=== PATIENT | female | born 1985 | race Caucasian/White ===

== ENCOUNTER 2022-11-21 16:23 | Emergency (ER) | payer MEDICAID ==
[~2022-11-21] VITALS: Ht 152.4 cm; Wt 101.2 kg
[2022-11-21] MEDS ORDERED: ACETAMINOPHEN ES 500 MG TABLET PO ONE (17:00)
[2022-11-21] MEDS ORDERED: KETOROLAC TROMETHAMINE 15 MG INJ IVP ONE (17:00)
[2022-11-21] MEDS ORDERED: IV NORMAL SALINE 1000 ML BAG IV ONE (17:00)
[2022-11-21 17:02] LABS: *BILIRUBIN,URIN NEGATIVE (NEGATIVE); *BLOOD, URINE NEGATIVE (NEGATIVE); *CLARITY,URINE CLEAR (CLEAR); *COLOR,URINE YELLOW (YELLOW); *KETONES,URINE NEGATIVE (NEGATIVE); *UROBILINOGEN,URINE 0.2 E.U./dl (NORMAL); LEUKOCYTE ESTERASE ,URINE TRACE (NEGATIVE); NITRITE, URINE NEGATIVE (NEGATIVE); UGLUCOSE NEGATIVE (NEGATIVE)
[2022-11-21 17:09] LABS: RBC,URINE 0-3 /HPF (0-3); WBC,URINE 0-3 /HPF (0-3)
[2022-11-21 17:13] LABS: MEAN CORPUSCULAR HEMOGLOBIN 27.7 uug (24.7-32.8); MEAN CORPUSCULAR VOLUME 83.4 fL (75.5-95.3); PLATELET COUNT (AUTO) 321 K/uL (179-408)
[2022-11-21 17:17] LABS: *URINE HCG, QUAL NEGATIVE (NEGATIVE)
[2022-11-21] MEDS ORDERED: KETOROLAC TROMETHAMINE 15 MG INJ ONE (17:21)
[2022-11-21 17:23] LABS: CREATININE 0.8 mg/dL (0.6-1.3)
[2022-11-21 17:29] LABS: BILIRUBIN,DIRECT 0.1 mg/dL (0.0-0.2); BILIRUBIN,TOTAL 0.3 mg/dL (0.2-1.0); TOTAL PROTEIN, SERUM 7.5 g/dL (6.4-8.2)
--- NOTE | 2022-11-21 17:45 | NUR ---
PT IS IN ROOM #1B. DR FINK EVALUATED THE PT.
[2022-11-21] MEDS ORDERED: LIDO30AD10 TP (18:35)
[2022-11-21] MEDS ORDERED: CYCL5TAB PO (18:35)
[2022-11-21] MEDS ORDERED: IBUP-1955 PO (18:35)
--- NOTE | 2022-11-21 19:05 | NUR ---
PT WAS D/C'd TO HOME. D/C INSTRUCTIONS GIVEN TO THE PT BY DR LANDEROS.
[2022-11-21 19:07] VITALS: BP 129/75; TEMP 98.2; O2SAT 98
== END 2022-11-21 19:08 | disposition home or self-care (01) ==
LOC: ER 16:23
DX: M54.50 Low back pain, unspecified (principal)
CPT/HCPCS: 99285; 74176; 96374; 80076; 80048; 81001; 84703; 83690; 85025; 36415; J1885; J7040; A4663

== ENCOUNTER 2023-03-01 17:05 | Emergency (ER) | payer MEDICAID ==
[~2023-03-01] VITALS: Ht 152.4 cm; Wt 102.1 kg
[~2023-03-01 17:05] MED LIST: CYCL5TAB PO; IBUP-1955 PO; LIDO30AD10 TP
[2023-03-01] MEDS ORDERED: NAPROXEN 500 MG TABLET PO ONE (17:30)
[2023-03-01] MEDS ORDERED: NAPROXEN 500 MG TABLET ONE (17:40)
[2023-03-01 19:59] VITALS: BP 138/95; TEMP 98; O2SAT 100
== END 2023-03-01 20:00 | disposition home or self-care (01) ==
LOC: ER 17:06
DX: R05.9 Cough, unspecified (principal); M54.6 Pain in thoracic spine; Z79.1 Long term (current) use of non-steroidal anti-inflammatories (NSAID); Z79.899 Other long term (current) drug therapy; Z20.822 Contact with and (suspected) exposure to COVID-19
CPT/HCPCS: 71045; A4606; A4663

== ENCOUNTER 2023-10-20 11:15 | Emergency (ER) | payer MEDICAID, OTHER ==
[~2023-10-20] VITALS: Ht 157.5 cm; Wt 101.2 kg
[2023-10-20] MEDS ORDERED: AMOX-430 PO (12:23)
[2023-10-20] MEDS ORDERED: NEOM10DR11 RIGHT EAR (12:23)
[2023-10-20] MEDS ORDERED: AMOXICILLIN-CLAVUL 875-125MG TABLET ONE (12:28)
[2023-10-20] MEDS: AMOXICILLIN-CLAVUL 875-125MG TABLET PO ONE (12:28)
[2023-10-20 12:38] VITALS: BP 140/74; TEMP 98.4; O2SAT 100
== END 2023-10-20 12:41 | disposition home or self-care (01) ==
LOC: ER 11:29
DX: H66.91 Otitis media, unspecified, right ear (principal); Z79.899 Other long term (current) drug therapy
CPT/HCPCS: A4606; A4663

== ENCOUNTER 2024-01-31 12:56 | Emergency (ER) | payer OTHER ==
[~2024-01-31] VITALS: Ht 157.5 cm; Wt 104.3 kg
[~2024-01-31 12:56] MED LIST changes: +AMOX-430 PO; +NEOM10DR11 RIGHT EAR
[2024-01-31] MEDS ORDERED: FLUC150T PO (14:50)
[2024-01-31] MEDS ORDERED: FLUCONAZOLE 100 MG TABLET ONE (14:54)
[2024-01-31] MEDS ORDERED: AMOXICILLIN-CLAVUL 875-125MG TABLET ONE (14:54)
[2024-01-31] MEDS: FLUCONAZOLE 100 MG TABLET PO ONE (14:58)
[2024-01-31] MEDS: AMOXICILLIN-CLAVUL 875-125MG TABLET PO ONE (14:58)
[2024-01-31 15:04] VITALS: BP 132/74; TEMP 98; O2SAT 100
== END 2024-01-31 15:05 | disposition home or self-care (01) ==
LOC: ER 12:56
DX: H65.92 Unspecified nonsuppurative otitis media, left ear (principal); E66.9 Obesity, unspecified; Z79.1 Long term (current) use of non-steroidal anti-inflammatories (NSAID); Z79.899 Other long term (current) drug therapy; Z68.41 Body mass index [BMI] 40.0-44.9, adult
CPT/HCPCS: A4606; A4663

== ENCOUNTER 2025-04-15 19:46 | Emergency (ER) | payer OTHER ==
[~2025-04-15 19:46] MED LIST changes: +AMOX-319 PO; -AMOX-430 PO; -CYCL5TAB PO; +CYCL5TAB4 PO; +FLUC150T PO; -IBUP-1955 PO; +IBUP600T51 PO
== END 2025-04-15 22:39 | disposition left against medical advice (07) ==
LOC: ER 19:48
DX: M79.673 Pain in unspecified foot (principal); Z53.21 Procedure and treatment not carried out due to patient leaving prior to being seen by health care provider